=== PATIENT | female | born 1985 | race African-American/Black ===

== ENCOUNTER 2016-08-31 08:10 | Emergency (ER) | payer MEDICAID ==
[~2016-08-31] VITALS: Ht 162.6 cm; Wt 74.0 kg
[~2016-08-31 08:10] MED LIST: CLARITIN; MYLAN; [UNRECOGNIZED DRUG - REMARK]
[2016-08-31] MEDS: KETOROLAC 60MG/2ML VIAL IM ONE ×2 (09:30→09:51)
[2016-08-31 11:38] VITALS: BP 118/73
== END 2016-08-31 11:39 | disposition home or self-care (01) ==
LOC: ER 08:41
DX: S16.1XXA Strain of muscle, fascia and tendon at neck level, initial encounter (principal); S46.911A Strain of unspecified muscle, fascia and tendon at shoulder and upper arm level, right arm, initial encounter; R03.0 Elevated blood-pressure reading, without diagnosis of hypertension; V49.49XA Driver injured in collision with other motor vehicles in traffic accident, initial encounter; Y93.89 Activity, other specified; Y92.410 Unspecified street and highway as the place of occurrence of the external cause; J45.909 Unspecified asthma, uncomplicated; Z90.89 Acquired absence of other organs; M54.9 Dorsalgia, unspecified
CPT/HCPCS: 70450; 72125; 73030; 81025; 96372; 99284; J1885